=== PATIENT | female | born 1965 | race Caucasian/White ===

== ENCOUNTER 2022-05-23 15:47 | Emergency (ER) | payer OTHER ==
[~2022-05-23] VITALS: Ht 162.6 cm; Wt 77.1 kg
[2022-05-23 16:32] VITALS: BP 137/65
[2022-05-23] MEDS ORDERED: NS 1000ML 1,000 ML IV STA (16:53)
[2022-05-23] MEDS ORDERED: ZOFRAN IV STA ×2 (16:53→18:59)
--- NOTE | 2022-05-23 16:59 | ER.PDOC ---
General Chief Complaint: Nausea,Vomiting,Diarrhea Stated Complaint: COUGH/CONGESTION,N/V/D Time seen by MD: 16:57 Source: patient Exam Limitations: no limitations History of Present Illness Initial Comments Nausea, vomiting, cough, congestion and fever since this morning. No abdominal pain. Severity/Quality: moderate Associated Symptoms (vomiting): freq vomitng Vital Signs First Vital Signs Date Time Temp Pulse Resp B/P (MAP) Pulse Ox O2 Delivery O2 Flow Rate FiO2 05/23/22 16:32 101.2 108 20 95 05/23/22 16:32 137/65 (89) Room Air* 0 21 Last Vital Signs Date Time Temp Pulse Resp B/P (MAP) Pulse Ox O2 Delivery O2 Flow Rate FiO2 05/23/22 16:32 101.2 108 20 137/65 (89) 95 Room Air* 0 21 Past Medical History Medical History: thyroid disease, other Surgical History: hysterectomy, tonsillectomy Family History Significant Family History: no pertinent family hx Social History Smoking: non-smoker Alcohol Use: none Drug Use: none Constitutional: see HPI EENTM: nose congestion Respiratory: cough Cardiovascular: no symptoms reported Gastrointestinal: see HPI All Other Systems: Reviewed and Negative Physical Exam General Appearance: No Apparent Distress Neck: Non-Tender, Full Range of Motion, Supple, Normal Inspection Respiratory: chest non-tender, lungs clear, normal breath sounds, no respiratory distress, no accessory muscle use Cardiovascular: Normal Peripheral Pulses, Regular Rate, Rhythm, No Edema, No Gallop, No JVD, No Murmur, Tachycardia Gastrointestinal: Normal Bowel Sounds, Non Tender, Soft Back: Normal Inspection, No CVA Tenderness, No Vertebral Tenderness Extremities: Normal Range of Motion, Non-Tender, Normal Inspection, No Pedal Edema, No Calf Tenderness, Normal Capillary Refill, Pelvis Stable 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 (05/23/22 16:53) Urinalysis (05/23/22 16:53) Xr Chest 1v (05/23/22 16:53) Influenza A&B (05/23/22 16:53) Covid19 Antigen Minerva Starr (05/23/22 16:53) 0.9 % Sodium Chloride (Ns 1000ml) (05/23/22 16:53) Ondansetron Hcl/Pf (Zofran) (05/23/22 16:53) 0.9 % Sodium Chloride (Ns 1000ml) (05/23/22 17:01) Ondansetron Hcl/Pf (Zofran) (05/23/22 17:01) Acetaminophen (Tylenol) (05/23/22 18:18) Acetaminophen (Tylenol) (05/23/22 18:38) Vital Signs Date Time Temp Pulse Resp B/P (MAP) Pulse Ox O2 Delivery O2 Flow Rate FiO2 05/23/22 16:32 101.2 108 20 137/65 (89) 95 Room Air* 0 21 05/23/22 16:32 101.2 108 20 05/23/22 16:32 101.2 108 20 95 Administered Medications Medications (Trade) Dose Ordered Sig/Sabina Route PRN Reason Start Time Stop Time Status Last Admin Dose Admin Acetaminophen (Tylenol) 1,000 mg STAT STAT PO 05/23/22 18:18 05/23/22 18:19 DC 05/23/22 18:42 1,000 MG Ondansetron HCl (Zofran) 4 mg STAT STAT IV 05/23/22 16:53 05/23/22 16:57 DC 05/23/22 17:20 4 MG Sodium Chloride 1,000 ml @ 1,200 mls/hr Q50M STAT IV 05/23/22 16:53 05/23/22 17:42 DC 05/23/22 17:20 1,200 MLS/HR Laboratory Tests Test 05/23/22 00:00 05/23/22 17:18 SARS-CoV-2 Antigen (Rapid) NEGATIVE (NEGATIVE) White Blood Count 12.3 10^3/uL (4.5-11.0) H Red Blood Count 4.45 10^6/uL (4.00-5.20) Hemoglobin 13.4 g/dL (12.0-15.0) Hematocrit 41.6 % (36.0-46.0) Mean Corpuscular Volume 93.5 fL (78-100) Mean Corpuscular Hemoglobin 30.1 pg (26-34) Mean Corpuscular Hemoglobin Concent 32.2 g/dL (33-36.5) L Red Cell Distribution Width 13.0 % (11.5-14.5) Platelet Count 276 10^3/uL (150-400) Mean Platelet Volume 10.3 fL (7.8-11.0) Neutrophils (%) (Auto) 86.6 % (41.0-85.0) H Lymphocytes (%) (Auto) 6.1 % (24.0-44.0) *L Monocytes (%) (Auto) 6.8 % (5.0-12.0) Neutrophils # (Auto) 10.7 10^3/uL (1.8-7.7) H Lymphocytes # (Auto) 0.75 10^3/uL1 (1.0-4.8) L Monocytes # (Auto) 0.8 10^3/uL (0.3-0.8) Absolute Immature Granulocyte (auto 0.02 10^3 u/L (0-2) Absolute Eosinophils (auto) 0.0 10^3/uL (0.0-0.2) Immature Granulocytes % 0.20 % (0.00-0.50) Eosinophils % 0.1 % (0.0-5.0) Basophils % 0.2 % (0.0-0.2) Basophils # 0.0 10^3/uL (0.0-0.1) Urine Collection Type RANDOM Urine Color YELLOW Urine Appearance CLEAR Urine Bilirubin NEGATIVE (NEGATIVE) Urine Ketones TRACE (NEGATIVE) H Urine Specific [place] 1.020 (1.005-1.030) Urine pH 8.5 (4.5-8.0) Urine Protein NEGATIVE (NEGATIVE) Urine Urobilinogen 1.0 E.U./dL (0.2) Urine Nitrate NEGATIVE (NEGATIVE) Urine Leukocyte Esterase NEGATIVE (NEGATIVE) Urine Glucose (Auto)(UA) NEGATIVE (NEGATIVE) Urine Blood TRACE-INTACT (NEGATIVE) H Sodium Level 136 mmol/L (132-145) Potassium Level 3.5 mmol/L (3.6-5.2) L Chloride Level 103.0 mmol/L (96-109) Carbon Dioxide Level 25.4 mmol/L (20.0-32) Anion Gap 11.1 Blood Urea Nitrogen 7 mg/dL (7-18) Creatinine 0.83 mg/dL (0.59-1.40) Estimated GFR () 86.0 (>/=60) Est GFR (CKD-EPI)(Non-Afr [place] Citizen) 71.1 (>/=60) BUN/Creatinine Ratio 8.0 Glucose Level 116 mg/dL (70-110) H Calcium Level 8.7 mg/dL (8.4-10.5) Total Bilirubin 0.4 mg/dL (0.2-1.0) Aspartate Amino Transferase (AST) 27 U/L (0-35) Alanine Aminotransferase (ALT) 23 U/L (12-78) Alkaline Phosphatase 87 U/L (50-136) Total Protein 6.9 g/dL (6.4-8.2) Albumin 3.7 g/dL (3.4-5.0) Globulin 3.2 Albumin/Globulin Ratio 1.156 Lipase 11 U/L (16-77) L Influenza Type A Antigen NEGATIVE (NEG) Influenza Type B Antigen NEGATIVE (NEG) Progress Progress Chest x-ray showed no acute abnormality. Urinalysis negative for UTI. Flu and COVID tests are both negative. Chemistry show potassium of 3.5, rest of Chemistry is unremarkable. WBC is 12.3. She received a liter of NS, Zofran and Tylenol. She is feeling better to go home. ER DEPART Departure Time of Disposition: 19:01 Disposition: 01 HOME / SELF CARE / HOMELESS Impression: Primary Impression: Acute upper respiratory infection, unspecified Additional Impressions: Nausea & vomiting Dehydration Viral illness Condition: Improved Referrals: PCP,UNKNOWN (PCP) PRIMARY CARE PROVIDER Additional Instructions: Zofran ODT Tylenol Start feeding clear liquids and advance diet as tolerated Mucinex DM [id number] as directed Follow-up with your PCP in 2 to 3 days Return to ED if worsening symptoms or concerns Duration or Time Spent with Pa: 30 min Problem Qualifiers Additional Impressions: Nausea & vomiting Vomiting type: unspecified Qualified Codes: R11.2 - Nausea with vomiting, unspecified KISHORE CHÁVEZ MD May 23, 2022 16:59
[2022-05-23] MEDS ORDERED: ZOFRAN ONE ×2 (17:01→19:18)
[2022-05-23] MEDS ORDERED: NS 1000ML 1,000 ML ONE (17:01)
[2022-05-23 17:24] LABS: BASOPHIL % 0.2 % (0.0-0.2); EOSINOPHIL % 0.1 % (0.0-5.0); LYMPHOCYTES # 0.75 10^3/uL1 (1.0-4.8); LYMPHOCYTES % 6.1 % (24.0-44.0); MEAN CORP HGB 30.1 pg (26-34); MONOCYTES # 0.8 10^3/uL (0.3-0.8); MONOCYTES % 6.8 % (5.0-12.0); NEUTROPHIL # 10.7 10^3/uL (1.8-7.7); NEUTROPHILS % 86.6 % (41.0-85.0); PLATELET COUNT 276 10^3/uL (150-400)
--- NOTE | 2022-05-23 18:01 | DIREP ---
PROCEDURE:CHEST 1 VIEW COMPARISON:None. INDICATIONS:Cough and fever FINDINGS: LUNGS/PLEURA:No significant pulmonary parenchymal abnormalities. No focal consolidation. No effusion or pneumothorax. VASCULATURE:Normal. Unremarkable pulmonary vasculature. CARDIAC:Normal. No cardiac silhouette abnormality or cardiomegaly. MEDIASTINUM:Normal. No visible mass or adenopathy. BONES:Mild scoliosis and degenerative changes in the thoracic spine. No acute findings. OTHER:Negative. CONCLUSION:No consolidative pneumonia or other acute cardiopulmonary findings. Dictated by: Shun Michelle M.D. on 05/23/2022 at 05:59 PM
[2022-05-23 18:05] LABS: CARBON DIOXIDE 25.4 mmol/L (20.0-32)
[2022-05-23] MEDS ORDERED: TYLENOL PO STA (18:18)
[2022-05-23] MEDS ORDERED: TYLENOL PO ONE (18:38)
[2022-05-23 18:39] LABS: BILIRUBIN,URINE NEGATIVE (NEGATIVE)
--- NOTE | 2022-05-23 19:25 | NUR ---
SL DC'D WITH CATH INTACE, SITE SECURED WITH COBAN, NO BLEEDING NOTED.
[2022-05-23 19:29] VITALS: BP 127/69
[2022-05-23 19:39] LABS: BAND NEUTROPHILS 0 % (2-6); BASOPHIL 0 % (0-2); EOSINOPHIL 0 % (1-4); LYMPHOCYTE 7 % (25-36); MONOCYTE 2 % (3-9); SEGMENTED NEUTROPHILS 91 % (31-76)
== END 2022-05-23 19:26 | disposition home or self-care (01) ==
LOC: ER 15:47
DX: J06.9 Acute upper respiratory infection, unspecified (principal); E86.0 Dehydration; R11.2 Nausea with vomiting, unspecified; E07.9 Disorder of thyroid, unspecified; Z90.710 Acquired absence of both cervix and uterus; Z90.89 Acquired absence of other organs; Z20.822 Contact with and (suspected) exposure to COVID-19
CPT/HCPCS: 96361; 96374; 96376; 99284; 87086; 71045; 87426; 80053; 85025; 36415; 87804 ×2; 81001; 83690; J7030; J2405 ×2; A9150

== ENCOUNTER 2022-05-25 04:59 | Emergency (ER) | payer OTHER ==
[~2022-05-25] VITALS: Ht 162.6 cm; Wt 77.1 kg
[2022-05-25] MEDS ORDERED: ZOFRAN ODT SL STA (05:10)
[2022-05-25] MEDS ORDERED: ZOFRAN ODT ONE (05:11)
[2022-05-25 05:27] LABS: BILIRUBIN,URINE 1+ (NEGATIVE); UROBILINOGEN,URINE 0.2 E.U./dL (0.2)
[2022-05-25] MEDS ORDERED: PHENERGAN IM STA (05:36)
[2022-05-25] MEDS ORDERED: PHENERGAN ONE (05:46)
[2022-05-25] MEDS ORDERED: NS 1000ML 1,000 ML STA (05:53)
[2022-05-25 05:57] LABS: BASOPHIL % 0.4 % (0.0-0.2); EOSINOPHIL % 0.3 % (0.0-5.0); LYMPHOCYTES # 1.59 10^3/uL1 (1.0-4.8); LYMPHOCYTES % 22.7 % (24.0-44.0); MEAN CORP HGB 30.6 pg (26-34); MONOCYTES # 0.7 10^3/uL (0.3-0.8); MONOCYTES % 10.6 % (5.0-12.0); NEUTROPHIL # 4.6 10^3/uL (1.8-7.7); NEUTROPHILS % 65.9 % (41.0-85.0); PLATELET COUNT 215 10^3/uL (150-400); RED CELL DISTRIBUTION WIDTH 13.1 % (11.5-14.5)
[2022-05-25] MEDS ORDERED: NS 1000ML 1,000 ML ONE ×2 (05:58→08:05)
[2022-05-25] MEDS ORDERED: SOLU-CORTEF IV STA (06:03)
--- NOTE | 2022-05-25 06:10 | NUR ---
CT CALLED CALLED [facility] FOR CT
[2022-05-25 06:13] VITALS: BP 117/58
[2022-05-25] MEDS ORDERED: SOLU-CORTEF ONE (06:14)
[2022-05-25 06:15] LABS: CARBON DIOXIDE 27.2 mmol/L (20.0-32)
[2022-05-25] MEDS ORDERED: WATER 20 ML ONE (06:16)
[2022-05-25] MEDS ORDERED: KLOR-CON 10 PO STA (06:17)
[2022-05-25] MEDS ORDERED: KLOR-CON 10 PO ONE (06:22)
--- NOTE | 2022-05-25 06:37 | ER.PDOC ---
General Chief Complaint: Nausea,Vomiting,Diarrhea Stated Complaint: VOMITING Time seen by MD: 05:00 Source: patient Exam Limitations: no limitations History of Present Illness Initial Comments Patient is a 56-year-old female with a past medical history of [place]'s disease who comes in with nausea vomiting over the past 3 to 4 days. Patient states that she was seen here couple days ago diagnosed with upper respiratory infection and comes back with continued nausea vomiting. Patient states that she cannot keep anything down this continues to have nausea and vomiting. Patient states that she has not had her hydrocortisone injection but is worried that that could be part of her problem. Patient states that she does not know what makes her symptoms better or worse.Patient has associated symptoms of subjective fevers Allergies: Coded Allergies: Penicillins (Verified Allergy, Unknown, Rash, 05/25/22) Vital Signs First Vital Signs Date Time Temp Pulse Resp B/P (MAP) Pulse Ox O2 Delivery O2 Flow Rate FiO2 05/25/22 06:13 98.1 92 16 117/58 (77) 95 Room Air* 0 21 Last Vital Signs Date Time Temp Pulse Resp B/P (MAP) Pulse Ox O2 Delivery O2 Flow Rate FiO2 05/25/22 08:45 98.1 98 16 122/61 (81) 91 Room Air* 0 21 Past Medical History Medical History: thyroid disease, other Surgical History: hysterectomy, tonsillectomy Family History Significant Family History: no pertinent family hx Social History Smoking: non-smoker Alcohol Use: none Drug Use: none Reviewed Nursing Reviewed: Vital Signs, Abn. Noted, Nursing Assessment Constitutional: fever, malaise, weakness EENTM: no symptoms reported Respiratory: no symptoms reported Cardiovascular: no symptoms reported Gastrointestinal: diarrhea, nausea, poor appetite, poor fluid intake, vomiting Genitourinary: no symptoms reported Musculoskeletal: no symptoms reported Skin: no symptoms reported Psychiatric/Neurological: no symptoms reported Endocrine: no symptoms reported Hematologic/Lymphatic: no symptoms reported Physical Exam General Appearance: No Apparent Distress, WD/WN HEENT: PERRL/EOMI, Normal ENT Inspection, TMs Normal, Pharynx Normal Neck: Non-Tender, Full Range of Motion, Supple, Normal Inspection Respiratory: chest non-tender, lungs clear, normal breath sounds, no respiratory distress, no accessory muscle use Cardiovascular: Normal Peripheral Pulses, Regular Rate, Rhythm, No Edema, No Gallop, No JVD, No Murmur Gastrointestinal: Normal Bowel Sounds, Non Tender, Soft Back: Normal Inspection, No CVA Tenderness, No Vertebral Tenderness Extremities: Normal Range of Motion, Non-Tender, Normal Inspection, No Pedal Edema, No Calf Tenderness, Normal Capillary Refill, Pelvis Stable 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, No Motor/Sensory Deficits, Alert, Normal Mood/Affect, Oriented x 3 Skin: Normal Color, Warm/Dry Lymphatic: No Adenopathy Results/Orders Results/Orders Orders - RODERICK VARMA MD [facility] On Arrival (05/25/22 07:49) 0.9 % Sodium Chloride (Ns 1000ml) (05/25/22 08:05) 0.9 % Sodium Chloride (Ns 1000ml) (05/25/22 08:15) Vital Signs Date Time Temp Pulse Resp B/P (MAP) Pulse Ox O2 Delivery O2 Flow Rate FiO2 05/25/22 08:45 98.1 98 16 122/61 (81) 91 Room Air* 0 21 05/25/22 07:39 98.1 95 16 127/51 (76) 91 Room Air* 0 21 05/25/22 06:13 98.1 92 16 05/25/22 06:13 98.1 92 16 95 05/25/22 06:13 98.1 92 16 117/58 (77) 95 Room Air* 0 21 Administered Medications Medications (Trade) Dose Ordered Sig/Sabina Route PRN Reason Start Time Stop Time Status Last Admin Dose Admin Hydrocortisone Sodium Succinate (Solu-Cortef) 100 mg STAT STAT IV 05/25/22 06:03 05/25/22 06:04 UNV 05/25/22 06:21 100 MG Ondansetron HCl (Zofran Odt) 4 mg STAT STAT SL 05/25/22 05:10 05/25/22 05:11 DC 05/25/22 05:23 4 MG Potassium Chloride (Klor-Con 10) 40 meq STAT STAT PO 05/25/22 06:17 05/25/22 06:18 UNV 05/25/22 06:22 40 MEQ Promethazine HCl (Phenergan) 25 mg OT STAT IM 05/25/22 05:36 05/25/22 05:37 UNV 05/25/22 05:48 25 MG Sodium Chloride 1,000 ml @ 0 mls/hr Q0M STAT IV 05/25/22 05:53 05/25/22 05:54 DC 05/25/22 06:10 1,200 MLS/HR Sodium Chloride 1,000 ml @ 0 mls/hr Q0M STAT IV 05/25/22 08:15 05/25/22 08:16 UNV 05/25/22 08:20 1,200 MLS/HR Laboratory Tests Test 05/25/22 05:02 05/25/22 05:20 05/25/22 05:40 Urine Collection Type RANDOM Urine Color YELLOW Urine Appearance HAZY Urine Bilirubin 1+ (NEGATIVE) H Urine Ictotest NEGATIVE (NEGATIVE) Urine Ketones 4+ (NEGATIVE) H Urine Specific [place] >=1.030 (1.005-1.030) Urine pH 5.5 (4.5-8.0) Urine Protein 2+ (NEGATIVE) H Urine Urobilinogen 0.2 E.U./dL (0.2) Urine Nitrate NEGATIVE (NEGATIVE) Urine Leukocyte Esterase NEGATIVE (NEGATIVE) Urine Glucose (Auto)(UA) NEGATIVE (NEGATIVE) Urine Blood 1+ (NEGATIVE) H Urine RBC 0-2 RBC/HPF (NONE SEEN) Urine WBC 2-5 WBC/HPF (0-2) Urine Squamous Epithelial Cells FEW (<=FEW) Urine Bacteria FEW (NONE SEEN) H Nasal Adenovirus (PCR) NotDetected (NotDetected) Nasal Coronavirus Type 229E (PCR) NotDetected (NotDetected) Nasal Coronavirus Type HKU1 (PCR) NotDetected (NotDetected) Nasal Coronavirus Type NL63 (PCR) NotDetected (NotDetected) Nasal Coronavirus Type OC43 (PCR) NotDetected (NotDetected) Nasal Enterovirus/Rhinovirus (PCR) NotDetected (NotDetected) Nasal Influenza Type A (H1) (PCR) DETECTED (NotDetected) Nasal Influenza Type A (H3) (PCR) NotDetected (NotDetected) Nasal Swab Influenza Virus B (PCR) NotDetected (NotDetected) Nasal Parainfluenza Type 1 (PCR) NotDetected (NotDetected) Nasal Parainfluenza Type 2 (PCR) NotDetected (NotDetected) Nasal Parainfluenza Type 3 (PCR) NotDetected (NotDetected) Nasal Parainfluenza Type 4 (PCR) NotDetected (NotDetected) Nasal Resp Syncytial Virus (PCR) NotDetected (NotDetected) Nasal Bordetella pertussis DNA (PCR NotDetected (NotDetected) Nasal Chlamydophila pneumoniae (PCR NotDetected (NotDetected) Nasal Human Metapneumovirus (PCR) NotDetected (NotDetected) Nasal Mycoplasma pneumoniae (PCR) NotDetected (NotDetected) Nasal SARS-CoV-2 (PCR) NotDetected (NotDetected) Influenza A (PCR) NotDetected (NotDetected) Influenza Type A (H1N1/) (PCR) NotDetected (NotDetected) White Blood Count 7.0 10^3/uL (4.5-11.0) Red Blood Count 4.31 10^6/uL (4.00-5.20) Hemoglobin 13.2 g/dL (12.0-15.0) Hematocrit 39.6 % (36.0-46.0) Mean Corpuscular Volume 91.9 fL (78-100) Mean Corpuscular Hemoglobin 30.6 pg (26-34) Mean Corpuscular Hemoglobin Concent 33.3 g/dL (33-36.5) Red Cell Distribution Width 13.1 % (11.5-14.5) Platelet Count 215 10^3/uL (150-400) Mean Platelet Volume 10.0 fL (7.8-11.0) Neutrophils (%) (Auto) 65.9 % (41.0-85.0) Lymphocytes (%) (Auto) 22.7 % (24.0-44.0) L Monocytes (%) (Auto) 10.6 % (5.0-12.0) Neutrophils # (Auto) 4.6 10^3/uL (1.8-7.7) Lymphocytes # (Auto) 1.59 10^3/uL1 (1.0-4.8) Monocytes # (Auto) 0.7 10^3/uL (0.3-0.8) Absolute Immature Granulocyte (auto 0.01 10^3 u/L (0-2) Absolute Eosinophils (auto) 0.0 10^3/uL (0.0-0.2) Immature Granulocytes % 0.10 % (0.00-0.50) Eosinophils % 0.3 % (0.0-5.0) Basophils % 0.4 % (0.0-0.2) H Basophils # 0.0 10^3/uL (0.0-0.1) Sodium Level 134 mmol/L (132-145) Potassium Level 3.0 mmol/L (3.6-5.2) L Chloride Level 99.0 mmol/L (96-109) Carbon Dioxide Level 27.2 mmol/L (20.0-32) Anion Gap 10.8 Blood Urea Nitrogen 10 mg/dL (7-18) Creatinine 0.99 mg/dL (0.59-1.40) Estimated GFR () 70.2 (>/=60) Est GFR (CKD-EPI)(Non-Afr [place]) 58.0 (>/=60) BUN/Creatinine Ratio 10.0 Glucose Level 92 mg/dL (70-110) Calcium Level 8.6 mg/dL (8.4-10.5) Total Bilirubin 0.5 mg/dL (0.2-1.0) Aspartate Amino Transferase (AST) 39 U/L (0-35) H Alanine Aminotransferase (ALT) 30 U/L (12-78) Alkaline Phosphatase 72 U/L (50-136) Total Protein 6.4 g/dL (6.4-8.2) Albumin 3.2 g/dL (3.4-5.0) L Globulin 3.2 Albumin/Globulin Ratio 1.000 Lipase 16 U/L (16-77) Progress Progress Patient here with history of symptoms of nausea vomiting. Will give fluids will obtain labs will consider hydrocortisone possibly give that if necessary. We will continue to monitor closely and if patient has change in status may consider imaging Chest x-ray and CT abdomen pelvis has been ordered. Patient was ultimately given the hydrocortisone as she has had some softer blood pressures this is since come back with fluids and the hydrocortisone.Patient was found to be hypokalemic this is also been replaced. 0700 - Signed out pt to Dr. Jory Rojas took over the care of this pt at 7a after reviewing the chart and discussion w Dr. Rodriguez. Pt is w/o sx xpt gen weakness will tilt to determine adequate hydration Tilt is +. Thus, bolus a 3rd L NS. After bolus, pt feels much better and feels ready to go home though flu A +, will put her on Abx bc she has been coughing for 1wk and not getting better ER DEPART Departure Time of Disposition: 09:43 Disposition: 01 HOME / SELF CARE / HOMELESS Impression: Primary Impression: N&V (nausea and vomiting) Additional Impressions: Dehydration Diarrhea Weakness generalized Influenza A Condition: Improved Patient Instructions: Jayden's Disease, Adrenal Insufficiency, Dehydration, Adult, Diarrhea, Influenza A (H1N1), Nausea and Vomiting, Weakness Referrals: PCP,UNKNOWN (PCP) PRIMARY CARE PROVIDER Additional Instructions: zpack phenergan medrol dose pk f/u w pcp in 2d push gatorade Duration or Time Spent with Pa: 30 Problem Qualifiers ALFONSO RODRIGUEZ MD May 25, 2022 06:37 RODERICK VARMA MD May 25, 2022 09:47
--- NOTE | 2022-05-25 06:55 | DIREP ---
PROCEDURE:CT ABDOMEN/PELVIS W/O CONTRAST COMPARISON:None. INDICATIONS:abd pain TECHNIQUE:Axial images were created through the abdomen and pelvis without intravenous contrast material. No oral contrast was administered. Sagittal and coronal reconstructions were performed from source images. FINDINGS: LUNG BASES:Mild basilar atelectasis. LIVER:Hepatic steatosis. No hepatic lesion on noncontrast exam. BILIARY:Gallbladder is nondilated, possible intraluminal sludge or stones. No intra or extrahepatic biliary dilation. PANCREAS:Unremarkable. SPLEEN:Normal, nonenlarged. KIDNEYS:No renal mass on noncontrast exam. No hydronephrosis or ureteral stone. No focal or asymmetric perinephric stranding. ADRENALS:Normal. AORTA/VASCULAR:Normal. No aneurysm. RETROPERITONEUM:No adenopathy or mass. BOWEL/MESENTERY:Question small hiatal hernia. There are 4 radiopaque tablets in the distal stomach suggesting recent ingestion. Inherently limited assessment of the stomach itself, can't exclude mild circumferential wall thickening of the distal stomach. No evidence of obstruction. Appendix normal. Few sigmoid diverticula without CT findings of diverticulitis. ABDOMINAL WALL:There is subcutaneous air localized in the medial aspect of the right. No mass or hernia. URINARY BLADDER: Inherently limited evaluation of the wall; unremarkable for level of distension. PELVIS:Status post hysterectomy, no adnexal mass. No adenopathy. BONES:No bony lesion or fracture. OTHER:No free air or fluid. CONCLUSION: 1. Hepatic steatosis. 2. Four radiopaque tablets in the distal stomach may be related to recent injection but cannot exclude circumferential mild wall thickening of the distal stomach. The stomach is nondilated. 3. Question small hiatal hernia. 4. Nondilated gallbladder with possible intraluminal sludge or stones. Dictated by: Yeni Graham MD on 05/25/2022 at 06:48 AM
--- NOTE | 2022-05-25 06:56 | DIREP ---
PROCEDURE:CHEST 1 VIEW COMPARISON:[facility], CT, CT ABD/PELVIS W/O, 05/25/2022, 06:34 AM. [facility], CR, XRAY CHEST SINGLE VW, 05/23/2022, 05:30 PM. INDICATIONS:cough FINDINGS: LUNGS/PLEURA:Streaky opacities in the lung bases is favored to represent atelectasis. No confluent pulmonary infiltrate at this time. No effusions. No pneumothorax. VASCULATURE:Unremarkable pulmonary vasculature. CARDIAC:Mild cardiomegaly. MEDIASTINUM:No visible mass or adenopathy. BONES:No fracture or visible bony lesion. OTHER:Negative. CONCLUSION: 1. Streaky basilar opacities favored to represent atelectasis, new. No confluent pulmonary infiltrate at this time, follow-up chest radiographs may be helpful. 2. Mild cardiomegaly. Dictated by: Yeni Graham MD on 05/25/2022 at 06:54 AM
--- NOTE | 2022-05-25 06:57 | NUR ---
CRITICAL LAB FLU A POSITIVE AND H1N1, DOCTOR NOTIFIED.
[2022-05-25 07:39] VITALS: BP 127/51
[2022-05-25] MEDS ORDERED: NS 1000ML 1,000 ML IV STA (08:15)
[2022-05-25 08:45] VITALS: BP 122/61
[2022-05-25 09:46] VITALS: BP 120/45
== END 2022-05-25 09:52 | disposition home or self-care (01) ==
LOC: ER 04:59
DX: R11.2 Nausea with vomiting, unspecified (principal); Z20.822 Contact with and (suspected) exposure to COVID-19; E07.9 Disorder of thyroid, unspecified; E27.1 Primary adrenocortical insufficiency; E86.0 Dehydration; J10.1 Influenza due to other identified influenza virus with other respiratory manifestations; R53.1 Weakness; Z88.0 Allergy status to penicillin; Z90.710 Acquired absence of both cervix and uterus
CPT/HCPCS: 99285; 74176; 96374; 87637; 71045; 96361; 87086; 80053; 85025; 36415; 81001; 83690; 96372; J7030 ×2; J3490; J1720; J2550; A4216

== ENCOUNTER 2022-12-16 00:55 | Emergency (ER) | payer OTHER ==
[~2022-12-16] VITALS: Ht 162.6 cm; Wt 77.1 kg
--- NOTE | 2022-12-16 01:05 | NUR ---
ARRIVAL PT AMBULATORY INTO ER WITH NO DISTRESS ON RA, C/O NAUSEA, VOMITING, DIARRHEA RELATED TO ADDISONS DISEASE. HISTORY AND STATUS OBTAINED. VS AND ASSESSMENT COMPLETE CHARTED. DR CHÁVEZ NOTIFIED OF PT ARRIVAL.
[2022-12-16 01:25] VITALS: BP 138/44
[2022-12-16] MEDS ORDERED: SOLU-CORTEF IV STA (01:35)
[2022-12-16] MEDS ORDERED: ZOFRAN IV STA (01:35)
[2022-12-16] MEDS ORDERED: NS 1000ML 1,000 ML IV STA (01:35)
[2022-12-16] MEDS ORDERED: NS 1000ML 1,000 ML ONE (01:41)
[2022-12-16] MEDS ORDERED: SOLU-CORTEF ONE (01:41)
[2022-12-16] MEDS ORDERED: ZOFRAN ONE (01:41)
[2022-12-16 01:49] LABS: BASOPHIL % 0.1 % (0.0-0.2); EOSINOPHIL # 0.1 10^3/uL (0.0-0.2); EOSINOPHIL % 0.5 % (0.0-5.0); LYMPHOCYTES # 1.98 10^3/uL1 (1.0-4.8); LYMPHOCYTES % 13.1 % (24.0-44.0); MEAN CORP HGB 29.7 pg (26-34); MONOCYTES # 0.8 10^3/uL (0.3-0.8); MONOCYTES % 5.2 % (5.0-12.0); NEUTROPHIL # 12.2 10^3/uL (1.8-7.7); PLATELET COUNT 318 10^3/uL (150-400); RED CELL DISTRIBUTION WIDTH 12.9 % (11.5-14.5)
--- NOTE | 2022-12-16 01:56 | ER.PDOC ---
General Chief Complaint: Nausea,Vomiting,Diarrhea Stated Complaint: VOMITING, DIARRHEA Time seen by MD: 01:52 Source: patient Exam Limitations: no limitations History of Present Illness Initial Comments Nausea, vomiting, diarrhea and abdominal cramps since last night. 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 She took Solu-Cortef 100 mg at home which has helped to some extent, but she is requesting for more steroids, IV fluids and antiemetic. Severity/Quality: moderate, cramping Abdominal Pain Onset Location: Generalized Abdomen Associated Symptoms (vomiting): mild vomiting Associated Symptoms (diarrhea): watery Prior symptoms/Treatment: Similar symptoms previous Allergies: Coded Allergies: Penicillins (Verified Allergy, Unknown, Rash, 05/25/22) Vital Signs First Vital Signs Date Time Temp Pulse Resp B/P (MAP) Pulse Ox O2 Delivery O2 Flow Rate FiO2 12/16/22 01:25 97.7 84 18 100 12/16/22 01:25 138/44 (75) Room Air* 0 21 Last Vital Signs Date Time Temp Pulse Resp B/P (MAP) Pulse Ox O2 Delivery O2 Flow Rate FiO2 12/16/22 01:25 97.7 84 18 12/16/22 01:25 138/44 (75) 100 Room Air* 0 21 Past Medical History Medical History: thyroid disease, other Surgical History: hysterectomy, tonsillectomy Family History Significant Family History: no pertinent family hx Social History Smoking: non-smoker Alcohol Use: none Drug Use: none Constitutional: no symptoms reported EENTM: no symptoms reported Respiratory: no symptoms reported Cardiovascular: no symptoms reported Gastrointestinal: see HPI All Other Systems: Reviewed and Negative Physical Exam General Appearance: No Apparent Distress, WD/WN Neck: Non-Tender, Full Range of Motion, Supple, Normal Inspection Respiratory: chest non-tender, lungs clear, normal breath sounds, no respiratory distress, no accessory muscle use Cardiovascular: Normal Peripheral Pulses, Regular Rate, Rhythm, No Edema, No Gallop, No JVD, No Murmur Gastrointestinal: Normal Bowel Sounds, No Organomegaly, No Pulsatile Mass, Tenderness (Mild in upper abdomen) Back: Normal Inspection, No CVA Tenderness, No Vertebral Tenderness Extremities: Normal Range of Motion, Non-Tender, Normal Inspection, No Pedal Edema, No Calf Tenderness, Normal Capillary Refill, Pelvis Stable 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 (12/16/22 01:35) Urinalysis (12/16/22 01:35) 0.9 % Sodium Chloride (Ns 1000ml) (12/16/22 01:35) Ondansetron Hcl/Pf (Zofran) (12/16/22 01:35) Hydrocortisone Sod Succinate (Solu-Ginger (12/16/22 01:35) 0.9 % Sodium Chloride (Ns 1000ml) (12/16/22 01:41) Hydrocortisone Sod Succinate (Solu-Ginger (12/16/22 01:41) Ondansetron Hcl/Pf (Zofran) (12/16/22 01:41) Urine Culture (12/16/22 01:57) Ceftriaxone Sodium (Rocephin) (12/16/22 02:34) Vital Signs Date Time Temp Pulse Resp B/P (MAP) Pulse Ox O2 Delivery O2 Flow Rate FiO2 12/16/22 01:25 97.7 84 18 12/16/22 01:25 97.7 84 18 138/44 (75) 100 Room Air* 0 21 12/16/22 01:25 97.7 84 18 100 Administered Medications Medications (Trade) Dose Ordered Sig/Sabina Route PRN Reason Start Time Stop Time Status Last Admin Dose Admin Hydrocortisone Sodium Succinate (Solu-Cortef) 100 mg STAT STAT IV 12/16/22 01:35 12/16/22 01:37 DC 12/16/22 01:48 100 MG Ondansetron HCl (Zofran) 4 mg STAT STAT IV 12/16/22 01:35 12/16/22 01:37 DC 12/16/22 01:48 4 MG Sodium Chloride 1,000 ml @ 1,200 mls/hr Q50M STAT IV 12/16/22 01:35 12/16/22 02:24 DC 12/16/22 01:48 1,200 MLS/HR Laboratory Tests Test 12/16/22 01:20 12/16/22 01:57 White Blood Count 15.1 10^3/uL (4.5-11.0) H Red Blood Count 4.61 10^6/uL (4.00-5.20) Hemoglobin 13.7 g/dL (12.0-15.0) Hematocrit 41.5 % (36.0-46.0) Mean Corpuscular Volume 90.0 fL (78-100) Mean Corpuscular Hemoglobin 29.7 pg (26-34) Mean Corpuscular Hemoglobin Concent 33.0 g/dL (33-36.5) Red Cell Distribution Width 12.9 % (11.5-14.5) Platelet Count 318 10^3/uL (150-400) Mean Platelet Volume 10.8 fL (7.8-11.0) Neutrophils (%) (Auto) 81.0 % (41.0-85.0) Lymphocytes (%) (Auto) 13.1 % (24.0-44.0) L Monocytes (%) (Auto) 5.2 % (5.0-12.0) Neutrophils # (Auto) 12.2 10^3/uL (1.8-7.7) H Lymphocytes # (Auto) 1.98 10^3/uL1 (1.0-4.8) Monocytes # (Auto) 0.8 10^3/uL (0.3-0.8) Absolute Immature Granulocyte (auto 0.02 10^3 u/L (0-2) Absolute Eosinophils (auto) 0.1 10^3/uL (0.0-0.2) Immature Granulocytes % 0.10 % (0.00-0.50) Eosinophils % 0.5 % (0.0-5.0) Basophils % 0.1 % (0.0-0.2) Basophils # 0.0 10^3/uL (0.0-0.1) Sodium Level 141 mmol/L (132-145) Potassium Level 3.8 mmol/L (3.6-5.2) Chloride Level 105.0 mmol/L (96-109) Carbon Dioxide Level 27.5 mmol/L (20.0-32) Anion Gap 12.3 Blood Urea Nitrogen 16 mg/dL (7-18) Creatinine 0.94 mg/dL (0.59-1.40) Estimated GFR () 74.3 (>/=60) Est GFR (CKD-EPI)(Non-Afr German) 61.4 (>/=60) BUN/Creatinine Ratio 17.0 (10.0-20.0) Glucose Level 118 mg/dL (70-110) H Calcium Level 8.6 mg/dL (8.4-10.5) Total Bilirubin 0.4 mg/dL (0.2-1.0) Aspartate Amino Transferase (AST) 18 U/L (0-35) Alanine Aminotransferase (ALT) 23 U/L (12-78) Alkaline Phosphatase 105 U/L (50-136) Total Protein 6.8 g/dL (6.4-8.2) Albumin 3.8 g/dL (3.4-5.0) Globulin 3.0 Albumin/Globulin Ratio 1.266 Lipase 22 U/L (16-77) Urine Collection Type RANDOM Urine Color YELLOW Urine Appearance TURBID Urine Bilirubin NEGATIVE (NEGATIVE) Urine Ketones TRACE (NEGATIVE) H Urine Specific Cedar >=1.030 (1.005-1.030) Urine pH 5.5 (4.5-8.0) Urine Protein TRACE (NEGATIVE) Urine Urobilinogen 0.2 E.U./dL (0.2) Urine Nitrate NEGATIVE (NEGATIVE) Urine Leukocyte Esterase 1+ (NEGATIVE) H Urine Glucose (Auto)(UA) NEGATIVE (NEGATIVE) Urine Blood NEGATIVE (NEGATIVE) Urine RBC 0-2 RBC/HPF (NONE SEEN) Urine WBC 5-10 WBC/HPF (0-2) H Urine Squamous Epithelial Cells MODERATE (<=FEW) Urine Bacteria FEW (NONE SEEN) H Progress Progress Patient refused CT abdomen/pelvis, telling me that it is related to her Woodford's flare up. Urinalysis consistent with UTI. Chemistry is unremarkable. Lipase is normal. WBC 15.1 which is likely related to steroid use. Patient take steroids daily. She also has a mild UTI. She received a liter NS, Zofran and Solu-Cortef. She is feeling better and ready to go home. ER DEPART Departure Time of Disposition: 02:36 Disposition: 01 HOME / SELF CARE / HOMELESS Impression: Primary Impression: Gastroenteritis Additional Impressions: Addisonian crisis UTI (urinary tract infection) Condition: Improved Referrals: PCP,UNKNOWN (PCP) PRIMARY CARE PROVIDER Additional Instructions: Bactrim DS Continue with Zofran and steroids at home Follow-up with your PCP in 2 to 3 days Return to ED if worsening symptoms or concerns Duration or Time Spent with Pa: 30 min Problem Qualifiers Additional Impressions: UTI (urinary tract infection) Urinary tract infection type: site unspecified Hematuria presence: without hematuria Qualified Codes: N39.0 - Urinary tract infection, site not specified KISHORE CHÁVEZ MD Dec 16, 2022 01:56
[2022-12-16 02:01] LABS: CARBON DIOXIDE 27.5 mmol/L (20.0-32)
[2022-12-16 02:13] LABS: BILIRUBIN,URINE NEGATIVE (NEGATIVE); UROBILINOGEN,URINE 0.2 E.U./dL (0.2)
[2022-12-16 02:30] VITALS: BP 134/58
[2022-12-16] MEDS ORDERED: ROCEPHIN 1,000 MG in NS 100ML 100 ML IV STA (02:34)
[2022-12-16] MEDS ORDERED: NS 100ML 100 ML IV ONE (02:41)
[2022-12-16] MEDS ORDERED: ROCEPHIN ONE (02:41)
[2022-12-16 02:53] VITALS: BP 124/69
== END 2022-12-16 02:55 | disposition home or self-care (01) ==
LOC: ER 00:55
DX: N39.0 Urinary tract infection, site not specified (principal); K52.9 Noninfective gastroenteritis and colitis, unspecified; E27.2 Addisonian crisis; E07.9 Disorder of thyroid, unspecified; E27.1 Primary adrenocortical insufficiency; Z90.710 Acquired absence of both cervix and uterus; Z90.89 Acquired absence of other organs; Z88.0 Allergy status to penicillin
CPT/HCPCS: 99284; 96374; 96375; 96361; 87086; 80053; 85025; 36415; 81001; 83690; 87077; 87186; J7030; J0696 ×2; J2405; J1720